=== PATIENT | male | born 1955 | race Caucasian/White ===

== ENCOUNTER → 2019-05-04 | Outpatient (CLI) | payer OTHER ==
--- NOTE | 2019-05-05 15:32 | XR ---
Lumbosacral spine HISTORY: Back pain 5 views of lumbosacral spine There is no evident spondylolysis. Lumbar vertebral bodies show preserved height. Minimal anterolisth esis grade 1 L5-S1, retrolisthesis grade 1 L4-5. There is loss of disc height at intervertebral level s with multilevel spondylosis. Apical scarring vascular calcifications are present anteriorly. Sclero sis present in the posterior elements compatible with facet arthropathy. IMPRESSION: Degenerative disc disease and facet arthropathy.
--- NOTE | 2019-05-05 15:33 | XR ---
X-ray coccyx HISTORY: Low back pain 3 views of the sacrum and coccyx Degenerative disc changes are noted in the lower lumbar spine. Bone mineralization is maintained. Ali gnment is normal. No fracture or dislocation. IMPRESSION: Degenerative disc disease.
== END | disposition home or self-care (01) ==
LOC: RADXRYALE 16:31
PROVIDERS: ATTEND Internal Medicine
DX: M51.37 Other intervertebral disc degeneration, lumbosacral region (principal); M46.97 Unspecified inflammatory spondylopathy, lumbosacral region; M53.3 Sacrococcygeal disorders, not elsewhere classified
CPT/HCPCS: 72110; 72220

== ENCOUNTER → 2020-10-12 | Outpatient (CLI) | payer BC | END | disposition home or self-care (01) | LOC: LABWHC1 16:20 | PROVIDERS: ATTEND Internal Medicine | DX: U07.1 COVID-19 (principal) | CPT/HCPCS: U0003; C9803; U0005 ==